=== PATIENT | male | born 1940 | race Two or more races ===

== ENCOUNTER 2020-10-12 09:12 | Outpatient (CLI) | payer OTHER | END 2020-10-12 09:22 | disposition home or self-care (01) | LOC: SONOGRAMA 09:12 → MAMO-SONO 09:15 → SONOGRAMA 09:22 | PROVIDERS: ATTEND Internal Medicine | DX: E04.2 Nontoxic multinodular goiter (principal); E03.8 Other specified hypothyroidism; E11.69 Type 2 diabetes mellitus with other specified complication ==

== ENCOUNTER 2020-11-03 08:58 | Outpatient (CLI) | payer OTHER | END 2020-11-03 09:00 | disposition home or self-care (01) | LOC: SONOGRAMA 08:58 | PROVIDERS: ATTEND Pathology Anatomic Pathology & Clinical Pathology | DX: D34 Benign neoplasm of thyroid gland (principal); E04.8 Other specified nontoxic goiter ==

== ENCOUNTER → 2023-01-15 07:52 | Outpatient (CLI) | payer OTHER ==
[2023-01-15 09:21] LABS: HEMATOCRIT 41.3 % (39.0-48.0); HEMOGLOBIN 14.2 g/dL (13-16.00); MEAN CELL VOLUME 87.1 fL (80.0-100.00); MEAN CORPUSCULAR HGB CONC 34.5 g/dl (32.0-36.0); PLATELET COUNT 194 K/uL (150-450); RED BLOOD COUNT 4.74 M/uL (4.00-6.00); RED CELL DISTRIBUTION WIDTH 15.1 % (11.5-14.5)
[2023-01-15 09:36] LABS: PARTIAL THROMBOPLASTIN TIME 26.1 SECONDS (22.0-34.0); PROTHROMBIN TIME 10.5 SECONDS (9.0-11.5)
[2023-01-15 09:38] LABS: URINE APPEARANCE Clear; URINE BILIRRUBIN Negative (NEGATIVE); URINE BLOOD Negative; URINE COLOR Yellow; URINE GLUCOSE Negative (NEGATIVE); URINE LEUKOCYTE Negative; URINE NITRATE Negative; URINE PROTEIN Negative (NEGATIVE); URINE UROBILINOGEN 0.2 E.U./dl
[2023-01-15 09:39] LABS: URINE BACTERIA 8.8 uL (0.0-1933); URINE RBC 3.7 uL (0.0-20.8); URINE WBC 2.3 uL (0.0-23.2)
[2023-01-15 09:44] LABS: URINE EPITHELIAL CELLS 1.3 uL (0.0-38.8)
[2023-01-15 10:04] LABS: ALBUMIN 3.2 gm/dL (3.4-5.0); BILIRUBIN TOTAL 0.56 mg/dL (0.3-1.2); CALCIUM 8.7 mg/dL (8.5-10.1); CHOL HDL RATIO 4.5 (0-5.0); CREATININE SERUM 1.1 mg/dL (0.70-1.30); GFR 64.25; GLOBULINA 3.4 G/DL (2.4-3.5); POTASSIUM 4.61 mEq/L (3.5-5.1); T4 FREE 0.97 NG/ML (0.76-1.46); TOTAL PROTEIN 6.6 gm/dL (6.4-8.2)
[2023-01-15 10:16] LABS: TSH 5.39 uIU/mL (0.358-3.74)
== END | disposition home or self-care (01) ==
LOC: LAB 07:52
PROVIDERS: ATTEND Internal Medicine Gastroenterology
DX: K30 Functional dyspepsia (principal); Z86.010 Personal history of colon polyps; R11.0 Nausea; E11.9 Type 2 diabetes mellitus without complications; R14.0 Abdominal distension (gaseous); E66.01 Morbid (severe) obesity due to excess calories

== ENCOUNTER 2023-01-15 08:40 | Outpatient (CLI) | payer OTHER | END 2023-01-15 08:46 | disposition home or self-care (01) | LOC: SONOGRAMA 08:40 | PROVIDERS: ATTEND Internal Medicine Gastroenterology | DX: K30 Functional dyspepsia (principal); Z86.010 Personal history of colon polyps; R11.0 Nausea; E11.9 Type 2 diabetes mellitus without complications; R14.0 Abdominal distension (gaseous); E66.01 Morbid (severe) obesity due to excess calories ==

== ENCOUNTER 2023-02-04 09:54 | Outpatient (CLI) | payer OTHER | END 2023-02-04 09:58 | disposition home or self-care (01) | LOC: RX STUDY 09:54 | PROVIDERS: ATTEND Internal Medicine Gastroenterology | DX: K22.89 Other specified disease of esophagus (principal); K20.80 Other esophagitis without bleeding; K31.89 Other diseases of stomach and duodenum; K44.9 Diaphragmatic hernia without obstruction or gangrene ==

== ENCOUNTER 2024-01-10 13:00 | Outpatient (CLI) | payer OTHER | END 2024-01-10 13:13 | disposition home or self-care (01) | LOC: SONOGRAMA 13:00 | DX: M17.9 Osteoarthritis of knee, unspecified (principal); M19.011 Primary osteoarthritis, right shoulder; M75.101 Unspecified rotator cuff tear or rupture of right shoulder, not specified as traumatic ==